=== PATIENT | female | born 1960 | race African-American/Black ===

== ENCOUNTER 2017-10-24 08:10 | Emergency (ER) | payer BC ==
[~2017-10-24 08:10] MED LIST: Sodium Chloride 0.9% 100 ML BAG ONE
[2017-10-24] MEDS ORDERED: Azithromycin 250 MG TAB ONE (08:31)
[2017-10-24] MEDS ORDERED: Dexamethasone 10 MG/ML VIAL ONE (08:31)
[2017-10-24] MEDS ORDERED: cefTRIAXone\\ROCEPHIN 1 GM VIAL ONE (08:31)
[2017-10-24] MEDS ORDERED: Benzonatate 100 MG CAP ONE (08:31)
--- NOTE | 2017-10-24 08:41 | RAD ---
PORTABLE CHEST: Date: 10/24/17 HISTORY: Dyspnea. FINDINGS: Heart size and mediastinum are within normal limits. Lungs are clear of infiltrates. No significant b anai findings. IMPRESSION: No active intrathoracic disease. POS: [id number]
[2017-10-24 08:54] LABS: PTT 26.3 SEC (22.9-36.1); Prothrombin Time 13.1 SEC (12.0-14.7)
[2017-10-24 09:04] LABS: ALT (SGPT) 11 U/L (8-55); AST (SGOT) 10 U/L (5-34); Albumin 3.5 g/dL (3.5-5.0); Alkaline Phosphatase 101 U/L (40-150); Anion Gap 12 mmol/L (10-20); BUN (Urea Nitrogen) 11 mg/dL (9.8-20.1); Bilirubin, Total 0.9 mg/dL (0.2-1.2); CK (CPK) 104 U/L (29-168); Calc. Creatinine Clearance 0 mL/min (70-130); Calcium 8.7 mg/dL (7.8-10.44); Carbon Dioxide 26 mmol/L (22-29); Chloride 107 mmol/L (98-107); Estimated GFR-MDRD Greater than 90; Glucose 175 mg/dL (70-105); Potassium 3.2 mmol/L (3.5-5.1); Protein, Total 6.5 g/dL (6.0-8.3); Sodium 142 mmol/L (136-145)
[2017-10-24 09:06] LABS: #Eosinphils 0.1 thou/uL (0.0-0.7); #Lymphocytes 2.5 thou/uL (1.20-3.40); #Monocytes 0.2 thou/uL (0.11-0.59); #Neutrophils 2.9 thou/uL (1.40-6.50); %Basophils 0.7 % (0.0-1.0); %Eosinophils 1.6 % (0.0-10.0); %Lymphocytes 43.6 % (21.0-51.0); %Monocytes 3.8 % (0.0-10.0); %Neutrophils 50.3 % (42.0-75.0); Hemoglobin 11.5 g/dL (12.0-16.0); Mean Corpuscular HGB CONC 31.2 g/dL (32.0-36.0); Mean Corpuscular Hemoglobin 24.4 pg (27.0-31.0); Mean Corpuscular Volume 78.3 fl (81.0-99.0); Mean Platelet Volume 7.4 fL (7.4-10.4); Platelet Count 190 thou/uL (130-400); RBC Distribution Width 15.3 % (11.5-14.5); White Blood Cell (WBC) Count 5.7 thou/uL (4.8-10.8)
[2017-10-24 09:07] LABS: CKMB 0.7 ng/mL (0-6.6); Troponin I Less than 0.010 ng/mL (< 0.028)
== END 2017-10-24 09:40 | disposition home or self-care (01) ==
LOC: MADERS 08:10
DX: J20.9 Acute bronchitis, unspecified (principal); E11.9 Type 2 diabetes mellitus without complications; I10 Essential (primary) hypertension; Z79.84 Long term (current) use of oral hypoglycemic drugs; Z79.899 Other long term (current) drug therapy
CPT/HCPCS: 71045; 80053; 82550; 82553; 83880; 84484; 85025; 85610; 85730; 93005; 94760; 96365; 96375; J0696; J1100; J7050; J7620

== ENCOUNTER 2025-01-05 14:13 | Emergency (ER) | payer BC, OTHER ==
[2025-01-05] MEDS ORDERED: Ketorolac Tromethamine 30 MG (1 mL) VIAL ONE (14:34)
[2025-01-05] MEDS ORDERED: Acetaminophen 500 MG TAB ONE (14:34)
[2025-01-05 14:42] LABS: Glucose, Urine (Dipstick) Negative (Negative); Leukocyte Trace (Negative); Protein, Urine (Dipstick) 30 mg/dL (Neg-Trace); Specific Gravity, Urine 1.025 (1.005-1.030)
[2025-01-05 14:52] LABS: Bacteria/HPF 2+ HPF (None Seen); CAUTI Indications for Culture Pelvic or flank pain; Mucous/LPF 2+ LPF (<2+); RBC/HPF None Seen HPF (0-3)
[2025-01-05 14:53] LABS: Urine Culture Reflex No No
[2025-01-05 14:59] LABS: Cocaine Metabolite Screen Negative (Negative); THC/Cannabinoid Screen Negative (Negative); Tricyclic Screen Negative (Negative)
== END 2025-01-05 15:20 | disposition home or self-care (01) ==
LOC: MADERS 14:13
DX: S13.4XXA Sprain of ligaments of cervical spine, initial encounter (principal); M62.830 Muscle spasm of back; E11.9 Type 2 diabetes mellitus without complications; I10 Essential (primary) hypertension; E78.5 Hyperlipidemia, unspecified; J42 Unspecified chronic bronchitis; V89.2XXA Person injured in unspecified motor-vehicle accident, traffic, initial encounter
CPT/HCPCS: 36416; 72040; 80306; 81001; 96372; 99284; J1885

== ENCOUNTER 2025-01-28 07:48 | Emergency (ER) | payer BC | END 2025-01-28 09:45 | disposition home or self-care (01) | LOC: MADERS 07:48 | DX: H61.22 Impacted cerumen, left ear (principal); H60.502 Unspecified acute noninfective otitis externa, left ear; E11.9 Type 2 diabetes mellitus without complications; I10 Essential (primary) hypertension; Z79.84 Long term (current) use of oral hypoglycemic drugs | CPT/HCPCS: 99282 ==

== ENCOUNTER 2025-05-11 20:11 | Emergency (ER) | payer BC ==
[2025-05-11] MEDS ORDERED: Acetaminophen 500 MG TAB ONE (21:29)
[2025-05-11] MEDS ORDERED: Ondansetron PF 4 MG/2 ML Vial ONE (21:30)
[2025-05-11 21:48] LABS: ALT (SGPT) 16 U/L (Less than 34); AST (SGOT) 12 U/L (11-34); Albumin 3.5 g/dL (3.1-4.5); Alkaline Phosphatase 115 U/L (40-110); Anion Gap 12 mmol/L (10-20); BUN (Urea Nitrogen) 12 mg/dL (9.8-20.1); Bilirubin, Total 0.8 mg/dL (0.3-1.2); Calc. Creatinine Clearance 0 mL/min (70-130); Calcium 8.3 mg/dL (7.8-10.44); Carbon Dioxide 24 mmol/L (23-31); Chloride 107 mmol/L (98-107); Globulin 2.9 g/dL (2.4-3.5); Glucose 246 mg/dL (80-115); Potassium 4.2 mmol/L (3.5-5.1); Sodium 139 mmol/L (136-145)
[2025-05-11 21:49] LABS: Troponin I Less than 0.010 ng/mL (< 0.028)
[2025-05-11 21:53] LABS: Hematocrit 40.2 % (36.0-47.0); Hemoglobin 12.4 g/dL (12.0-16.0); MDiff Complete? YES; Mean Corpuscular Hemoglobin 25.5 pg (27.0-31.0); Mean Corpuscular Volume 82.7 fl (78.0-98.0); Platelet Count 201 10x3/uL (130-400); Red Blood Cell (RBC) Count 4.86 mill/uL (4.20-5.40); White Blood Cell (WBC) Count 9.7 10x3/uL (4.8-10.8)
== END 2025-05-11 23:16 | disposition home or self-care (01) ==
LOC: MADERS 20:11
DX: J06.9 Acute upper respiratory infection, unspecified (principal); E11.65 Type 2 diabetes mellitus with hyperglycemia; R11.2 Nausea with vomiting, unspecified; R10.10 Upper abdominal pain, unspecified; R42 Dizziness and giddiness; R29.700 NIHSS score 0
CPT/HCPCS: 71045; 80053; 83880; 84484; 85025; 87428; 93005; 96374; J2405; J7030